=== PATIENT | male | born 1980 | race Two or more races ===

== ENCOUNTER 2024-03-19 13:36 | Emergency (ER) | payer OTHER ==
[~2024-03-19] VITALS: Ht 182.9 cm; Wt 102.1 kg
[2024-03-19] MEDS ORDERED: OLMESARTAN MEDO40 MG PO (15:00)
[2024-03-19] MEDS ORDERED: KETOROLAC TROMETHAMINE 60 MG VIAL IM STA (16:06)
[2024-03-19] MEDS ORDERED: ORPHENADRINE CITRATE 100 MG TABLET PO STA (16:07)
== END 2024-03-19 18:41 | disposition home or self-care (01) ==
LOC: ER 13:38
DX: S30.0XXA Contusion of lower back and pelvis, initial encounter (principal); W19.XXXA Unspecified fall, initial encounter; Y93.89 Activity, other specified; Y92.511 Restaurant or cafe as the place of occurrence of the external cause; Y99.8 Other external cause status; I10 Essential (primary) hypertension